=== PATIENT | male | born 1960 | race Caucasian/White ===

== ENCOUNTER 2019-12-14 14:08 | Outpatient (CLI) | payer MEDICARE, SELFPAY ==
--- NOTE | 2019-12-14 14:17 | XR_ITS ---
WS: [id number] PROCEDURE: XR chest 2V* [id number] CLINICAL INFORMATION: PNEUMONIA, UNSPECIFIED ORGANISM COMPARISON: None. FINDINGS: Heart: Normal cardiac silhouette. Lungs: Mild chronic emphysematous changes. No acute pulmonary infiltrates. Bones: Normal visualized bony structures. XR/XR chest 2V* [id number] IMPRESSION: No acute chest findings.
== END 2019-12-14 14:09 | disposition home or self-care (01) ==
LOC: RADWPI 14:14
PROVIDERS: Family Provider Nurse Practitioner Family; PCP Nurse Practitioner Family; Visit Provider Nurse Practitioner Family
DX: J18.9 Pneumonia, unspecified organism (principal)
CPT/HCPCS: 71046

== ENCOUNTER 2020-03-24 12:59 | Outpatient (CLI) | payer MEDICARE, SELFPAY ==
--- NOTE | 2020-03-24 13:05 | XR_ITS ---
WS: [id number] SHOULDER LEFT TECHNIQUE: 3 views of the left shoulder CLINICAL INFORMATION: PAIN IN LEFT SHOULDER COMPARISON: None. FINDINGS: Mild degenerative arthritis at the AC joint and glenohumeral joint. Rotator cuff arthropathy. Proxima l humerus appears normal. No acute fractures. XR/XR shoulder LT min 2V* [id number] IMPRESSION: Mild degenerative arthritis. No acute fractures
--- NOTE | 2020-03-24 13:05 | XR_ITS ---
WS: [id number] HIP WITH PELVIS LEFT TECHNIQUE: 3 views of the left hip with pelvis CLINICAL INFORMATION: PAIN IN LEFT HIP COMPARISON: None. FINDINGS: Normal left hip. No acute fractures. Pelvic phleboliths. XR/XR hip LT 2-3V wo/w pel* [id number] IMPRESSION: No acute left hip findings
== END 2020-03-24 13:00 | disposition home or self-care (01) ==
LOC: RADWPI 13:03
PROVIDERS: Family Provider Nurse Practitioner Family; PCP Nurse Practitioner Family; Visit Provider Nurse Practitioner Family
DX: M25.552 Pain in left hip (principal); M25.512 Pain in left shoulder; M19.012 Primary osteoarthritis, left shoulder
CPT/HCPCS: 73030; 73502

== ENCOUNTER 2024-02-14 10:19 | Outpatient (CLI) | payer MEDICARE, SELFPAY ==
--- NOTE | 2024-02-14 10:30 | CT_ITS ---
WS: [id number] LDCT LUNG CANCER SCREENING HISTORY: NICOTINE DEPENDENCE TECHNIQUE: Axial imaging performed from the apices to 1 cm below the costophrenic angles. Coronal and sagittal reformats are submitted with axial MIP series. All CT scans at [facility] use at least one of these dose optimization techniques: automated exposure control; mA and/or kV adjustment per patient size (includes targeted exams where dose is matched to clinical indication); or iterativ e reconstruction. DLP: 78.37 mGy.cm DIvol: Mean CTDIvol: 1.30 (mGy) COMPARISON: None available. Diagnostic quality: Satisfactory Lungs: Normally expanded lungs. No suspicious mass or nodule. No endobronchial lesions. Calcified med ial RIGHT upper lobe granuloma. Heart: Normal size heart with no pericardial effusion.. Other findings: Very mild atherosclerosis aorta. Normal size pulmonary artery. Calcified mediastinal and hilar granulomata. Splenic granulomata. No adrenal mass. Suspect 1.5 cm cystic mass upper pole RI GHT kidney. CT/CT lung screening [id number] IMPRESSION: LUNG-RADS: 1-Negative FOLLOW UP: 12 Month: Continue annual screening with LDCT OTHER FINDINGS (S MODIFIER): None.
== END 2024-02-14 10:20 | disposition home or self-care (01) ==
PROVIDERS: PCP Nurse Practitioner Family; Visit Provider Family Medicine
DX: F17.210 Nicotine dependence, cigarettes, uncomplicated (principal); L92.8 Other granulomatous disorders of the skin and subcutaneous tissue
CPT/HCPCS: 71271